=== PATIENT | male | born 1990 | race Caucasian/White ===

== ENCOUNTER 2016-10-11 02:54 | Inpatient (IN) | payer BC ==
[~2016-10-11] VITALS: Ht 180.3 cm; Wt 76.8 kg
[~2016-10-11 02:54] MED LIST: RISPERDAL PO
[2016-10-11] MEDS ORDERED: HALOPERIDOL 5 MG TABLET PO PRN (05:00)
[2016-10-11] MEDS ORDERED: ZOLPIDEM TARTRATE 10 MG TABLET PO PRN (05:00)
[2016-10-11] MEDS ORDERED: INFLUENZA VIRUS VACCINE QVS 2016-17 (3YR+)/PF 60 MCG/0.5 ML SYRINGE IM ONE (05:30)
[2016-10-11 05:54] VITALS: BP 120/74
[2016-10-11] MEDS: LORazepam 2 MG TABLET PO PRN (09:26)
[2016-10-11] MEDS ORDERED: PROMETHAZINE HCL 25 MG TABLET PO PRN (13:45)
[2016-10-11] MEDS ORDERED: TUBERCULIN, PURIFIED PROTEIN DERIVATIVE 5 TU/0.1 ML SYG ID ONE (13:45)
[2016-10-11] MEDS ORDERED: GuaiFENesin/D-METHORPHAN [SUGAR-FREE] 200-20MG/10 ML SYRUP UDCUP PO PRN (13:45)
[2016-10-11] MEDS ORDERED: LOPERAMIDE HCL 2 MG CAPSULE PO PRN (13:45)
[2016-10-11] MEDS ORDERED: MAG HYDROX/AL HYDROX/SIMETH ES 30 ML SUSPENSION UDCUP PO PRN (13:45)
[2016-10-11] MEDS ORDERED: RisperiDONE 1 MG TABLET PO PRN (13:45)
[2016-10-11] MEDS ORDERED: MAGNESIUM HYDROXIDE SUSPENSION 30 ML UDCUP PO PRN (13:45)
[2016-10-11] MEDS ORDERED: HydrOXYzine PAMOATE 50 MG CAPSULE PO PRN (13:45)
[2016-10-11 16:16] VITALS: BP 118/64
[2016-10-11] MEDS: THIAMINE HCL 100 MG TABLET PO SCH (17:09)
[2016-10-11] MEDS: RisperiDONE 2 MG TABLET PO SCH (21:10)
[2016-10-12 06:45] VITALS: BP 117/68
[2016-10-12] MEDS ORDERED: BACITRACIN 28.4 GM OINTMENT TP PRN (08:30)
[2016-10-12] MEDS: THIAMINE HCL 100 MG TABLET PO SCH ×2 (09:33→17:00)
[2016-10-12] MEDS: FOLIC ACID 1 MG TABLET PO SCH (09:34)
[2016-10-12] MEDS: MULTIVITAMINS WITH MINERALS, THERAPEUTIC TABLET PO SCH (09:34)
[2016-10-12] MEDS: ACETAMINOPHEN 325 MG TABLET PO PRN (12:04)
[2016-10-12 16:00] VITALS: BP 114/71
[2016-10-12] MEDS: LORazepam 2 MG TABLET PO PRN (17:00)
[2016-10-12] MEDS: RisperiDONE 2 MG TABLET PO SCH (20:39)
[2016-10-13 06:09] VITALS: BP 119/78
[2016-10-13] MEDS: ACETAMINOPHEN 325 MG TABLET PO PRN (06:12)
[2016-10-13 08:25] VITALS: BP 124/77
[2016-10-13] MEDS: THIAMINE HCL 100 MG TABLET PO SCH ×2 (08:46→16:27)
[2016-10-13] MEDS: MULTIVITAMINS WITH MINERALS, THERAPEUTIC TABLET PO SCH (08:46)
[2016-10-13] MEDS: FOLIC ACID 1 MG TABLET PO SCH (08:47)
[2016-10-13] MEDS ORDERED: RISP2 PO (13:20)
[2016-10-13 16:00] VITALS: BP 121/72
[2016-10-13] MEDS: LORazepam 2 MG TABLET PO PRN (16:27)
[2016-10-13] MEDS ORDERED: RisperiDONE 3 MG TABLET PO SCH (21:00)
[2016-10-14 01:05] VITALS: BP 136/77
[2016-10-14] MEDS ORDERED: RISP3 PO (08:27)
[2016-10-14] MEDS: FOLIC ACID 1 MG TABLET PO SCH (08:31)
[2016-10-14] MEDS: THIAMINE HCL 100 MG TABLET PO SCH (08:31)
[2016-10-14] MEDS: MULTIVITAMINS WITH MINERALS, THERAPEUTIC TABLET PO SCH (08:31)
== END 2016-10-14 14:00 | disposition home or self-care (01) | DRG 885 ==
LOC: EDSTATUS 04:06 → B3A 05:10
PROVIDERS: ADMIT Psychiatry & Neurology Psychiatry; ATTEND Psychiatry & Neurology Psychiatry
PROC: GZ51ZZZ Individual Psychotherapy, Behavioral (ICD-10-PCS; principal; 2016-10-11)
DX: F29 Unspecified psychosis not due to a substance or known physiological condition (principal); F90.9 Attention-deficit hyperactivity disorder, unspecified type; F32.9 Major depressive disorder, single episode, unspecified; S41.111A Laceration without foreign body of right upper arm, initial encounter; Z79.899 Other long term (current) drug therapy; Z28.21 Immunization not carried out because of patient refusal; Z91.19 Patient's noncompliance with other medical treatment and regimen; Z81.1 Family history of alcohol abuse and dependence; X58.XXXA Exposure to other specified factors, initial encounter; Y93.89 Activity, other specified; Y92.89 Other specified places as the place of occurrence of the external cause; Y99.8 Other external cause status
CPT/HCPCS: 90471